=== PATIENT | female | born 1945 | race Caucasian/White ===

== ENCOUNTER 2019-04-01 07:54 | Emergency (ER) | payer MEDICARE ==
[~2019-04-01] VITALS: Ht 160 cm; Wt 67.8 kg
[2019-04-01] MEDS ORDERED: ATOR40TA75 PO (08:23)
[2019-04-01] MEDS ORDERED: CLOP75TA2 PO (08:23)
[2019-04-01] MEDS ORDERED: METO1TAB7 PO (08:23)
[2019-04-01] MEDS ORDERED: CALC1CAP34 PO (08:23)
[2019-04-01] MEDS ORDERED: ASPI81CH33 PO (08:23)
[2019-04-01] MEDS ORDERED: FAMO20TA PO (08:23)
--- NOTE | 2019-04-01 08:30 | REP ---
INDICATION: Fall on thinners PROCEDURE: CT head without contrast COMPARISON STUDIES: No prior similar studies FINDINGS: No acute bleed or fracture. Ventricles, cisterns and sulci within normal limits. No mass effect or midline shift. No abnormal fluid collections. Prominent scalp hematoma seen posteriorly on the left. Paranasal sinuses and mastoid air cells are clear. CONCLUSION: No acute bleed or fracture. Electronically Signed by Allan Pepe MD 04/01/2019 08:21 A
--- NOTE | 2019-04-01 08:34 | REP ---
INDICATION: Fall. PROCEDURE: CT cervical spine without contrast. Axial CT images with multiplanar re-formations. COMPARISON STUDIES: No prior similar studies FINDINGS: No acute fracture or malalignment. There is straightening of the cervical spine and absent normal cervical lordosis. There is a minor anterolisthesis of C2 over C3 and C3 over C4, thought to be degenerative. Craniovertebral junction is unremarkable. There has no limiting osseous canal stenosis. Osteophytes narrow the neural foramen bilaterally at C3-4 C4-5. Lung apices are clear. The soft tissues are unremarkable. CONCLUSION: No acute findings. Degenerative changes. Electronically Signed by Allan Pepe MD 04/01/2019 08:26 A
[2019-04-01 09:32] VITALS: BP 166/76
== END 2019-04-01 09:36 | disposition home or self-care (01) ==
LOC: M ED 07:54
DX: S06.0X0A Concussion without loss of consciousness, initial encounter (principal); W00.0XXA Fall on same level due to ice and snow, initial encounter; Y92.018 Other place in single-family (private) house as the place of occurrence of the external cause; I25.10 Atherosclerotic heart disease of native coronary artery without angina pectoris; D25.9 Leiomyoma of uterus, unspecified; Z95.1 Presence of aortocoronary bypass graft; Z79.899 Other long term (current) drug therapy; Z79.82 Long term (current) use of aspirin; Z79.01 Long term (current) use of anticoagulants